=== PATIENT | female | born 1960 | race Caucasian/White ===

== ENCOUNTER 2016-10-31 09:24 | Emergency (ER) | payer OTHER ==
[~2016-10-31] VITALS: Ht 170.2 cm; Wt 121.2 kg
[~2016-10-31 09:24] MED LIST: ACET-1256 PO
[2016-10-31 09:26] VITALS: TEMP 36.6; Ht 170.2 cm; Wt 121.2 kg
[2016-10-31] MEDS ORDERED: ASPI325T39 PO (09:43)
--- NOTE | 2016-10-31 10:05 | EMERGENCY ROOM VISIT NOTE ---
History Report prepared by Zhang: Fernanda Helms Under the Supervision of: Dr. Giancarlo Munoz M.D. First contact with patient: 09:43 Chief Complaint: SWELLING TO EXTREMITY Stated Complaint: SWELLING OF BOTTOM LEG, FOOT/ANKLE PAIN (RIGHT) History of Present Illness The patient is a 56 year old female who presents to the Emergency Room with complaints of persistent swelling in her right leg starting last night. She injured her leg 2 weeks ago and has had difficulty going up and down stairs. Two days ago she was having pain and she took some Advil which relieved her pain. Last night she heard a snap and started experiencing increased pain in her knee. She noticed that night that her foot and leg had swollen. She applied an ice pack, but the swelling did not resolve. She denies any long trips, but states that she was sitting stationary at home for a long time yesterday. Source of History: patient Onset: last night Position: leg (right) Quality: other (swelling) Timing: other (persistent) Note: Pt reports right leg pain. Review of Systems See HPI for pertinent positives & negatives. A total of 10 systems reviewed and were otherwise negative. Past Medical & Surgical Surgical Problems: (1) Ganglion cyst (2) S/P cholecystectomy Family History FH: cancer FH: gallbladder disease FH: heart disease Hypertension Social History Smoking Status: Never Smoker Alcohol Use: none Marital Status: Housing Status: lives with family Occupation Status: employed Current/Historical Medications Scheduled Aspirin (Aspirin Ec), 650 MG PO UD Allergies Coded Allergies: Sodium Lauryl Sulfate (Verified Allergy, Unknown, RASH, 10/31/16) causes eczema flares Diphenhydramine (Verified Adverse Reaction, Unknown, NAUSEA, SYNCOPE, ) MAY TAKE LOW DOSE Sulfa Antibiotics (Verified Adverse Reaction, Unknown, GI SYMPTOMS, 10/31/16 ) Physical Exam Vital Signs Date Time Temp Pulse Resp B/P Pulse Ox O2 Delivery O2 Flow Rate FiO2 10/31/16 11:36 56 18 167/97 97 Room Air 10/31/16 09:26 36.6 69 18 172/118 97 Physical Exam GENERAL: Patient is in no acute distress. HEENT: No acute trauma, normocephalic atraumatic, mucous membranes moist, no nasal congestion, no scleral icterus. NECK: No stridor, no adenopathy, no meningismus, trachea is midline. LUNGS: Clear to auscultation bilaterally, no wheeze, no rhonchi, breath sounds equal. HEART: Without murmurs gallops or rubs, regular rate and rhythm. ABDOMEN: Soft, nontender, bowel sounds positive, no hernias, no peritonitis. EXTREMITIES: Some edema to the right leg from the knee to the ankle. No cellulitis. Some pain with palpation of the lateral right knee and some pain with movement of the right knee joint. Posterior right calf is somewhat tender. Good blood flow distally in the right lower extremity. NEUROLOGIC: Oriented x 3, no acute motor or sensory deficits, no focal weakness. SKIN: No rash, no jaundice, no diaphoresis. Medical Decision & Procedures ER Provider Diagnostic Interpretation: X ray results and stated below per my interpretation and radiologist interpretation. Other radiology results and stated below per my review and radiologist interpretation: RIGHT KNEE 3 VIEWS CLINICAL HISTORY: Right knee pain and swelling. Trauma. COMPARISON: None. DISCUSSION: No acute fractures are visualized. There are osteoarthritic changes most pronounced the patellofemoral joint. No destructive lesions are evident. IMPRESSION: Degenerative change. No acute fractures or dislocations identified. Electronically signed by: José Miguel Hall M.D. 10/31/2016 10:25 AM Dictated Date/Time: 10/31/2016 10:24 AM RIGHT TIBIA/FIBULA 2 VIEWS ROUTINE CLINICAL HISTORY: pain, swelling Right COMPARISON: None. DISCUSSION: The bones and joint spaces appear intact. There is no evidence of fracture, dislocation or bony disease. There is no evidence for soft tissue swelling. Mild degenerative change of the knee as well as ankle. Heel spur is present. IMPRESSION: No acute bony abnormality Electronically signed by: Sharath Mckeon M.D. 10/31/2016 10:27 AM Dictated Date/Time: 10/31/2016 10:26 AM Venous Doppler right leg RIGHT VENOUS DOPP LOWER EXT UNILAT CLINICAL HISTORY: swelling, pain Right TECHNIQUE: Venous Doppler COMPARISON STUDY: None FINDINGS: Normal venous Doppler. No evidence for thrombosis. Complex and a partially hemorrhagic popliteal cyst measuring 6 x 3 cm. This shows partial dissection to the upper calf. IMPRESSION: 1. Study is negative for deep venous thrombosis. 2. Complex popliteal cyst extending to the upper calf from the popliteal region Electronically signed by: Sharath Mckeon M.D. 10/31/2016 10:44 AM Dictated Date/Time: 10/31/2016 10:43 AM ED Course 0943: The patient was evaluated in room A11. A complete history and physical exam was performed. 1106: I reevaluated the patient. I discussed results and discharge instructions : she verbalized understanding and agreement. The patient is ready for discharge. Medical Decision Differential diagnoses: DVT, musculoskeletal pain, cellulitis, joint effusion, fracture, sprain. The patient presents with right knee and leg pain. There has been some right leg swelling. Ultrasound of the right leg does not show DVT. A popliteal cyst with extension into the calf was noted. Right knee film shows some subtle arthritis, no fracture or dislocation. Right tib-fib film shows no fracture. The patient did not have any neurovascular compromise. There was no sign of cellulitis. I suspect her pain is from the Wilkerson's cyst. She was reassured. She is being discharged home. She can return for worsening symptoms. Of note, the patient's blood pressure was somewhat elevated. She has no history of hypertension and believes she is just nervous. She will follow with her doctors office. Impression Primary Impression: Right leg pain Additional Impressions: Right leg swelling Popliteal cyst Scribe Attestation The scribe's documentation has been prepared under my direction and personally reviewed by me in its entirety. I confirm that the note above accurately reflects all work, treatment, procedures, and medical decision making performed by me. Departure Information Dispostion Home / Self-Care Referrals No Doctor, Assigned (PCP) Familia Christian M.D. Forms HOME CARE DOCUMENTATION FORM, IMPORTANT VISIT INFORMATION Patient Instructions My [facility] [employer] Additional Instructions Aleve for pain as directed ice to the area for 30 minutes as a time every few hours try to stay off of the leg and keep it elevated follow with your fam md or orthopedics next week no clot by ultrasound today, films showed no fracture Problem Qualifiers
--- NOTE | 2016-10-31 10:27 | DIAGNOSTIC IMAGING REPORT ---
RIGHT KNEE 3 VIEWS CLINICAL HISTORY: Right knee pain and swelling. Trauma. COMPARISON: None. DISCUSSION: No acute fractures are visualized. There are osteoarthritic changes most pronounced the patellofemoral joint. No destructive lesions are evident. IMPRESSION: Degenerative change. No acute fractures or dislocations identified. Electronically signed by: José Miguel Hall M.D. 10/31/2016 10:25 AM Dictated Date/Time: 10/31/2016 10:24 AM
--- NOTE | 2016-10-31 10:29 | DIAGNOSTIC IMAGING REPORT ---
RIGHT TIBIA/FIBULA 2 VIEWS ROUTINE CLINICAL HISTORY: pain, swelling Right COMPARISON: None. DISCUSSION: The bones and joint spaces appear intact. There is no evidence of fracture, dislocation or bony disease. There is no evidence for soft tissue swelling. Mild degenerative change of the knee as well as ankle. Heel spur is present. IMPRESSION: No acute bony abnormality Electronically signed by: Sharath Mckeon M.D. 10/31/2016 10:27 AM Dictated Date/Time: 10/31/2016 10:26 AM
--- NOTE | 2016-10-31 10:46 | DIAGNOSTIC IMAGING REPORT ---
Venous Doppler right leg RIGHT VENOUS DOPP LOWER EXT UNILAT CLINICAL HISTORY: swelling, pain Right TECHNIQUE: Venous Doppler COMPARISON STUDY: None FINDINGS: Normal venous Doppler. No evidence for thrombosis. Complex and a partially hemorrhagic popliteal cyst measuring 6 x 3 cm. This shows partial dissection to the upper calf. IMPRESSION: 1. Study is negative for deep venous thrombosis. 2. Complex popliteal cyst extending to the upper calf from the popliteal region Electronically signed by: Sharath Mckeon M.D. 10/31/2016 10:44 AM Dictated Date/Time: 10/31/2016 10:43 AM
[2016-10-31 11:36] VITALS: BP 167/97; PULSE 56; O2SAT 97
== END 2016-10-31 11:39 | disposition home or self-care (01) ==
LOC: C.EDB 09:26 → C.EDA 11:39
DX: M79.604 Pain in right leg (principal); M79.89 Other specified soft tissue disorders; M71.21 Synovial cyst of popliteal space [Baker], right knee; Z80.9 Family history of malignant neoplasm, unspecified; Z83.79 Family history of other diseases of the digestive system; Z82.49 Family history of ischemic heart disease and other diseases of the circulatory system

== ENCOUNTER 2017-07-20 00:19 | Emergency (ER) | payer OTHER ==
[~2017-07-20] VITALS: Ht 170.2 cm; Wt 117.1 kg
[~2017-07-20 00:19] MED LIST changes: -ACET-1256 PO; +ASPI325T39 PO
[2017-07-20 00:26] VITALS: TEMP 36.5; Ht 170.2 cm; Wt 117.1 kg
--- NOTE | 2017-07-20 00:40 | EMERGENCY ROOM VISIT NOTE ---
History Report prepared by Zhang: Earnest Gomez Under the Supervision of: Dr. Car Stokes M.D. First contact with patient: 00:31 Chief Complaint: LEG PAIN,LEG INJURY Stated Complaint: PAIN IN R LEG, HOT TO TOUCH,HURTS TO WALK,SWELLING History of Present Illness The patient is a 57 year old female who presents to the Emergency Room with complaints of right leg pain that began yesterday. She denies any history of blood clots. She rates her pain an 8/10 in severity. Her pain is exacerbated with walking. At this time, the patient noticed that her leg was bothering her. She has a bakers cyst to the area, but nothing else abnormal. Today, she noticed that the area bruised and began to become red as well. She notes some pain with touch as well. She denies any recent antibiotic use, trauma, injury, of falls. She denies any fevers, palpitations, chest pain, shortness of breath, nausea, vomiting, weakness, or numbness. Source of History: patient Onset: yesterday Position: leg (right) Symptom Intensity: 8/10 Quality: ache Timing: constant Modifying Factors (Worsening): other (Walking) Associated Symptoms: No fevers, No chest pain, No SOB, No nausea, No vomiting, No weakness, No numbness Note: She is having bruising and redness to the area as well. Review of Systems See HPI for pertinent positives & negatives. A total of 6 systems reviewed and were otherwise negative. Past Medical & Surgical Surgical Problems: (1) Ganglion cyst (2) S/P cholecystectomy Family History FH: cancer FH: gallbladder disease FH: heart disease Hypertension Social History Smoking Status: Never Smoker Alcohol Use: none Marital Status: Housing Status: lives with family Occupation Status: employed Current/Historical Medications Scheduled Cephalexin Monohydrate (Keflex), 500 MG PO QID Allergies Coded Allergies: Sodium Lauryl Sulfate (Verified Allergy, Unknown, RASH, 07/20/17) causes eczema flares Diphenhydramine (Verified Adverse Reaction, Unknown, NAUSEA, SYNCOPE, ) MAY TAKE LOW DOSE Sulfa Antibiotics (Verified Adverse Reaction, Unknown, GI SYMPTOMS, ) Physical Exam Vital Signs Date Time Temp Pulse Resp B/P (MAP) Pulse Ox O2 Delivery O2 Flow Rate FiO2 07/20/17 01:53 75 18 153/96 98 12/25/17 00:26 36.5 74 20 177/108 96 Room Air Physical Exam GENERAL: Patient is well appearing and in no acute distress. HEENT: No acute trauma, normocephalic atraumatic, mucous membranes moist, no nasal congestion, no scleral icterus. NECK: No stridor, no adenopathy, no meningismus, trachea is midline. LUNGS: No dyspnea. Clear to auscultation and equal bilaterally. No wheeze, no rhonchi. HEART: Regular rate and rhythm. No murmurs, rubs, gallops appreciated. EXTREMITIES: Normal motion all extremities, no cyanosis. Mildly swollen right calf with some faint bruising and erythema. Mild tenderness. Distal pulses intact bilaterally. NEUROLOGIC: Alert and oriented, no acute motor or sensory deficits, no focal weakness, cranial nerves grossly intact. SKIN: No rash, no jaundice, no diaphoresis. Medical Decision & Procedures ER Provider Diagnostic Interpretation: Radiology results and stated below per my review and radiologist interpretation: US VENOUS RIGHT LOWER EXTREMITY: No deep venous thrombosis identified in the right lower extremity. Complex appearing right popliteal cyst measuring approximately 5.7 x 6.9 x 1.5 cm. No evidence of associated color Doppler flow. Soft tissue edema noted in the posterior right calf. Radiologist: Rema Winkler M.D. Medications Administered Medications (Trade) Dose Ordered Sig/Alix Route Start Time Stop Time Status Last Admin Dose Admin Cephalexin Monohydrate (Keflex 500MG Home Pack) 1 homepack NOW ONCE PO 07/20/17 01:45 07/20/17 01:46 DC 07/20/17 01:48 1 HOMEPACK Cephalexin Monohydrate (Keflex Cap) 500 mg NOW ONCE PO 07/20/17 01:45 07/20/17 01:46 DC 07/20/17 01:48 500 MG ED Course 0031: The patient was evaluated in room B2. A complete history and physical exam was performed. 0136: Reevaluated the patient. She is feeling well. Discussed results and discharge instructions. I informed her that her blood pressure was elevated and advised her to see her PCP: She verbalized understanding and agreement. The patient is ready for discharge. Medical Decision Differential: DVT, CHF, Arterial Occlusion, Infectious, Joint Effusion, Trauma, Lymphedema, Idiopathic, Trauma, amongst other pathologies entertained. 57 yr old female here for evaluation of right calf discomfort. Mild bruising/ erythema/warmth. No DVT by US. N/V intact by exam. No evidence compartment syndrome by exam. I suspect this is bruise/muscular tear, but with erythema/ warmth will treat as cellulitis. Could be she had leak from west's cyst but no TTP over this. She has no systemic infectious symptoms and is in no distress. Reviewed symptoms to monitor for as well as discussed fact that she is HTN and will need PCP re-evaluation. Medication Reconcilliation Current Medication List: was personally reviewed by me Blood Pressure Screening Patient's blood pressure: Elevated blood pressure Blood pressure disposition: Referred to PCP Impression Primary Impression: Cellulitis of right lower leg Additional Impressions: Swelling of calf Hypertension Scribe Attestation The scribe's documentation has been prepared under my direction and personally reviewed by me in its entirety. I confirm that the note above accurately reflects all work, treatment, procedures, and medical decision making performed by me. Departure Information Dispostion Home / Self-Care Prescriptions Cephalexin Monohydrate (KEFLEX) 500 Mg Cap 500 MG PO QID for 10 Days, #40 CAP Prov: Car Stokes M.D. 07/20/17 Referrals No Doctor, Assigned (PCP) Forms HOME CARE DOCUMENTATION FORM, IMPORTANT VISIT INFORMATION Patient Instructions Cellulitis Dc, My [facility] Additional Instructions Your blood pressure was elevated during this visit. This is quite common in many people who are being evaluated in the Emergency Department for many reasons. However, it is important that you have your Primary Care Provider recheck your blood pressure and discuss whether treatment will be needed. snf elevated blood pressure can lead to strokes, heart attacks, kidney failure amongst other medical issues. If you develop severe headaches, chest pain, weakness in arms or legs, or other concerning symptoms call 911. Problem Qualifiers
[2017-07-20] MEDS ORDERED: CEPH500C2 PO (01:37)
[2017-07-20] MEDS ORDERED: CEPHALEXIN MONOHYDRATE 250 MG CAP PO ONE (01:45)
[2017-07-20] MEDS ORDERED: CEPHALEXIN 500MG HOME PACK 1 EA BTL PO ONE (01:45)
[2017-07-20 01:53] VITALS: BP 153/96; PULSE 75; O2SAT 98
--- NOTE | 2017-07-20 05:43 | DIAGNOSTIC IMAGING REPORT ---
R VENOUS DOPP LOWER EXT UNILAT CLINICAL HISTORY: 57 years-old Female presenting with right calf swelling/bruising. TECHNIQUE: Real-time grayscale and color and spectral Doppler ultrasound imaging of the veins of the right lower extremity was performed. Compression and augmentation were also utilized. COMPARISON: 10/31/2016. FINDINGS: Right: Common femoral vein: Patent. Greater saphenous vein: Patent. Deep femoral vein: Patent. Femoral vein: Patent. Popliteal vein: Patent. Calf veins: Patent. Other: Popliteal cyst measures 6.9 x 5.7 x 1.5 cm, which may demonstrate synovial thickening or internal debris. At the site of clinical interest in the right calf, subcutaneous edema is noted. IMPRESSION: No evidence of deep venous thrombosis. Electronically signed by: Darrell Jeong M.D. 07/20/2017 5:42 AM Dictated Date/Time: 07/20/2017 5:40 AM
== END 2017-07-20 01:56 | disposition home or self-care (01) ==
LOC: C.EDB 00:20
DX: L03.115 Cellulitis of right lower limb (principal); I10 Essential (primary) hypertension; M71.21 Synovial cyst of popliteal space [Baker], right knee; Z80.9 Family history of malignant neoplasm, unspecified; Z83.79 Family history of other diseases of the digestive system; Z82.49 Family history of ischemic heart disease and other diseases of the circulatory system